=== PATIENT | female | born 1955 | race American Indian/Alaskan Native ===

== ENCOUNTER 2019-04-10 07:36 | Day surgery (SDC) | payer BC, OTHER ==
[~2019-04-10 07:36] MED LIST: Acetaminophen 325 MG Tab PO PRN; Ondansetron 4 MG/2 ML SDV IVPUSH PRN; Phenylephrine 10% Ophth Soln 5 ML Bot EYERT PRN
[2019-04-10] MEDS ORDERED: Dexamethasone 4 MG/ML SDV IV ONE (07:37)
[2019-04-10] MEDS ORDERED: Midazolam 1 MG/ML 2 ML SDV IV ONE (07:37)
[2019-04-10] MEDS ORDERED: Sodium Chloride 0.9% 10 ML Syringe IV ONE (07:37)
[2019-04-10] MEDS: Proparacaine 0.5% Ophth Soln 15 ML Bottle EYERT ONE (07:54)
[2019-04-10] MEDS: Moxifloxacin 0.5% Ophth Soln 3 ML Bottle EYERT ONE (07:55)
[2019-04-10] MEDS: Povidone-Iodine 5% Sterile Ophth Soln 30 ML Bottle EYERT ONE ×2 (07:55→08:40)
[2019-04-10] MEDS: Phenylephrine 10% Ophth Soln 5 ML Bot EYERT ONE (07:56)
[2019-04-10] MEDS: Timolol Maleate 0.5% Ophth Soln 5 ML Bottle EYERT ONE (07:57)
[2019-04-10] MEDS: Cataract Ophth Solution EYERT ONE (07:58)
[2019-04-10] MEDS: Sodium Chloride 0.9% 10 ML Syringe FLUSH PRN (07:59)
[2019-04-10] MEDS: Lidocaine 1% 30 ML SDV INJECT ONE (08:39)
[2019-04-10] MEDS: Balanced Salt Solution Ophth Irrig 500 ML Bottle IOCULAR ONE (08:40)
[2019-04-10] MEDS: Tetracaine HCl/PF 0.5% 4 ML Bottle EYERT ONE (08:40)
[2019-04-10] MEDS: Dexamethasone/Neomycin/Polymyxin B Ophth Oint 3.5 GM Tube EYERT ONE (08:40)
[2019-04-10] MEDS: Diclofenac Sodium 0.1% Ophth Soln 5 ML Bottle EYERT ONE (08:40)
[2019-04-10] MEDS: Apraclonidine 0.5% Ophth Soln 5 ML Bot EYERT ONE (08:40)
[2019-04-10] MEDS: Vancomycin 500 MG SDV EYERT ONE (08:41)
[2019-04-10] MEDS: Chondroitin Sulfate/Hyaluronate Sodium Ophth Inj 0.75 ML Syringe EYERT ONE (08:41)
--- NOTE | 2019-04-10 15:07 | OR ---
DATE: 04/10/2019 PREOPERATIVE DIAGNOSIS: Visually significant mixed cataract, right eye. POSTOPERATIVE DIAGNOSIS: Visually significant mixed cataract, right eye. PROCEDURE: Extracapsular cataract extraction with intraocular lens implant, right eye. ANESTHESIA: Topical/local MAC. COMPLICATIONS: None. INDICATION: The patient was seen in the clinic with complaints of blurred vision. 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 Examination reveals visually significant mixed cataract. I explained options, offered cataract surgery and I explained risks, including, but not limited to infection, retinal detachment, loss of vision, need for additional surgery, amongst others. We discussed implant options. She has requested a Toric implant. She understands that she may still require glasses for some activities. She has voiced understanding with respect to risks and wished to proceed. OPERATIVE DESCRIPTION: After informed consent was obtained and the risks, benefits, and alternatives were explained, the patient was brought to the operative suite and topical anesthesia was administered. The patient was then prepped and draped in the sterile fashion and attention was placed on the right eye. A sterile lid speculum was placed into the right eye to allow operative exposure. A full-thickness paracentesis was made in the temporal portion of the operative eye. Preservative-free lidocaine 0.1 mL was injected into the anterior chamber followed by viscoelastic. A full-thickness corneal incision was then made into the anterior chamber. A bent needle cystotome was used to create a small aleksey in the anterior capsule. The capsulorrhexis forceps was then used to create a 360-degree curvilinear capsulorrhexis. The nucleus was then removed using a phacoemulsification handpiece and the remaining cortical material was then removed with irrigation and aspiration handpiece. Following removal of the cortical material, the capsular bag was then inspected and noted to be free of any holes or tears. Viscoelastic was then injected into the capsular bag and the intraocular lens was inserted into the capsular bag. The implant was oriented to correspond with preoperative corneal rand made with the patient in the upright position. The viscoelastic material was then removed from both the anterior and posterior chambers and from behind the IOL. The lens and capsular bag were then reinspected. The IOL was well centered and the capsular bag intact. The wound and paracentesis sites were inspected and hydrated with balanced saline solution. Both were found to be self-sealing. The intraocular pressure was assessed digitally and found to be within normal range. A good red reflex was noted at the completion of the procedure. No complications occurred during the operation. At the completion of the procedure, Maxitrol, Voltaren, and Iopidine drops were placed into the operative eye. A sterile eye shield was placed over the operative eye and the patient was transported to the postoperative recovery area having tolerated the procedure well. Postoperative instructions were given along with a postoperative appointment. The patient was advised to call with any questions or concerns. [facility] /[id number]
== END 2019-04-10 09:53 | disposition home or self-care (01) ==
LOC: DL.SDS 07:36
PROVIDERS: ATTEND Ophthalmology
DX: E11.36 Type 2 diabetes mellitus with diabetic cataract (principal); H25.813 Combined forms of age-related cataract, bilateral; E89.0 Postprocedural hypothyroidism; E55.9 Vitamin D deficiency, unspecified; M19.90 Unspecified osteoarthritis, unspecified site; E66.9 Obesity, unspecified; Z79.82 Long term (current) use of aspirin; Z79.899 Other long term (current) drug therapy; Z79.84 Long term (current) use of oral hypoglycemic drugs; Z68.31 Body mass index [BMI] 31.0-31.9, adult
CPT/HCPCS: A9270-GY; J1100; J2001; J2250; J3370; V2787-GY